=== PATIENT | male | born 1970 | race African-American/Black ===

== ENCOUNTER 2016-12-18 06:34 | Day surgery (SDC) | payer OTHER ==
[~2016-12-18 06:34] MED LIST: Buffered Lidocaine 1% SYRIN* 5 ML/SYR SYRINGE INTRADERM ONE
[2016-12-18] MEDS ORDERED: Bupivacaine 0.25% SDV* 30 ML ONE (07:11)
[2016-12-18] MEDS ORDERED: Midazolam* 1 MG/ML 2 ML VIAL (2 MG) ONE (07:32)
[2016-12-18] MEDS ORDERED: fentaNYL* 50 MCG/ML 2 ML VIAL (100 MCG VIAL) ONE (07:32)
[2016-12-18] MEDS ORDERED: Propofol* 10 MG/ML 20 ML BTL IV PUSH ONE (07:51)
[2016-12-18] MEDS ORDERED: Ketorolac INJ* 30 MG/ML 1 ML VIAL ONE (07:51)
[2016-12-18] MEDS ORDERED: Lidocaine 2% PF * 5 ML VIAL ONE (07:51)
[2016-12-18] MEDS ORDERED: HYDROcodone/ACETAMIN 5-325 MG* 1 TAB PO PRN (08:17)
[2016-12-18] MEDS ORDERED: PROCHLORPERAZINE INJ 5 MG/ML 2 ML VIAL IV PRN (08:17)
[2016-12-18] MEDS ORDERED: Acetaminophen TAB* 325 MG PO PRN (08:17)
[2016-12-18] MEDS ORDERED: Ondansetron INJ* 2 MG/ML VIAL IV PRN (08:17)
[2016-12-18 08:43] VITALS: BP 128/77
--- NOTE | 2016-12-18 12:40 | OP ---
DATE OF OPERATION: 12/18/16 - [facility] DATE OF : 70 SURGEON: Isidro Jaquez MD BAR WAITER/WAITRESS: THIERRY Dugan ANESTHESIOLOGIST: Dr. Leal. ANESTHESIA: Local MAC. PRE-OP DIAGNOSIS: Left wrist de Quervain's tenosynovitis. POST-OP DIAGNOSIS: Left wrist de Quervain's tenosynovitis. OPERATIVE PROCEDURE: Left de Quervain's release. INDICATIONS: Ric is a 46-year-old male whom I had injected him before. He had excellent relief after the injection and then few months later the pain came back. He came back to the operative suite, talked about another injection. He wanted to have surgical release performed. We therefore talked about risks and benefits. ESTIMATED BLOOD LOSS: 5 mL. COMPLICATIONS: None. FINDINGS: Very thickened first dorsal compartment tendon sheath. There was an accessory compartment. DESCRIPTION OF PROCEDURE: Ric was seen in the preoperative holding area. The correct site, side, and procedure were identified. We came back to the operating room where he got some anesthesia and then I infiltrated the operative area with 0.25% Marcaine. The arm was then prepped and draped in the usual fashion and time- out was performed. We began by exsanguinating the arm with the Esmarch and inflating the tourniquet to 250 mmHg. A transverse incision was then made over the first dorsal compartment tendon sheath about a cm too proximal to the radial styloid. Dissection was carried down bluntly and full thickness flaps were raised right off of the tendon sheath taking care to preserve the dorsal sensory branches of the radial nerves. With the tendon sheath fully exposed, I placed Ragnell retractors and then, under direct visualization, released the first dorsal compartment tendon sheath in line with the tendons on the dorsal aspect. There was septum in an accessory compartment noted. This was incised as well. There was some definite fraying of the tendon. There was some tenosynovitis, which was excised. I carried the release proximally and distally until there was absolutely no compression on the tendons. Once I was satisfied with the release, I went ahead and irrigated out the wound. I checked to make sure the tendons were inside the sheath. The skin was then closed with 4-0 nylon suture. The wound was then dressed with Xeroform, 4x4's, sterile Webril, and an Grzegorz wrap. He was taken to the recovery room in stable condition. [id number]/[facility] #: [id number] MAYA
== END 2016-12-18 09:03 | disposition home or self-care (01) ==
LOC: OREAST 06:34
PROVIDERS: ATTEND Orthopaedic Surgery Hand Surgery
DX: M65.4 Radial styloid tenosynovitis [de Quervain] (principal); F17.200 Nicotine dependence, unspecified, uncomplicated
CPT/HCPCS: J1885; J2250; J2704; J3010

== ENCOUNTER 2017-08-28 18:09 | Emergency (ER) | payer OTHER ==
[2017-08-28 18:43] VITALS: BP 130/84
--- NOTE | 2017-08-28 19:28 | UC ---
FLU HPI - HPI Summary HPI Summary: Patient presents with complaints of two-three day onset generalized fatigue, and malaise with runny nose, cough and chest congestion. He states he has been runny a fever. He has has no ill contact, or recent travel. - History of Current Complaint Hx Obtained From: Patient Onset/Duration: Gradual Onset, Lasting Days Severity Currently: Mild Severity Initially: Moderate Pain Intensity: 0 Associated Signs & Symptoms: Positive: Fever, Myalgia, Cough, Nasal Congestion - Risk Factors Influenza Risk Factors: Negative <Esme Alaniz - Last Filed: 08/28/17 19:31> <Lauren Hurd - Last Filed: 08/28/17 19:36> - History of Current Complaint Chief Complaint: UCRespiratory Stated Complaint: FLU SYMPTOMS Time Seen by Provider: 08/28/17 19:13 - Allergy/Home Medications Allergies/Adverse Reactions: Allergies Allergy/AdvReac Type Severity Reaction Status Date / Time No Known Allergies Allergy Verified 12/18/16 06:45 Home Medications: Home Medications Homeopathic Products [Zicam Cold Remedy] 08/28/17 [History] Tiyuppoxvtsdx-Hxwnuxamhrf-Eb [Theraflu Cold & Cough 10-20-20 mg] 08/28/17 [ History] PMH/Surg Hx/FS Hx/Imm Hx Previously Healthy: Yes Other History Of: Negative For: HIV, Hepatitis B, Hepatitis C - Surgical History Surgical History: Yes Surgery Procedure, Year, and Place: S/P [place] app[place] [facility] [place] - Family History Known Family History: Positive: Hypertension Negative: Cardiac Disease, Diabetes, Renal Disease - Social History Occupation: Employed Full-time Lives: With Family Alcohol Use: Rare Alcohol Amount: 1 x month, 1 beer Substance Use Type: Marijuana Substance Use Comment - Amount & Last Used: 2-4 x a week, marijuana Smoking Status (MU): Light Every Day Tobacco Smoker Type: Cigarettes Amount Used/How Often: 1 PACK/WK - Immunization History Most Recent Influenza Vaccination: 2009 Most Recent Tetanus Shot: unknown Most Recent Pneumonia Vaccination: never <Esme Alaniz - Last Filed: 08/28/17 19:31> Review of Systems Constitutional: Fever, Chills, Fatigue Skin: Negative Eyes: Negative ENT: Negative, Nasal Discharge Respiratory: Cough Cardiovascular: Negative Gastrointestinal: Negative Genitourinary: Negative Motor: Negative Neurovascular: Negative Musculoskeletal: Negative Neurological: Negative Psychological: Negative Is Patient Immunocompromised?: No All Other Systems Reviewed And Are Negative: Yes <Esme Alaniz - Last Filed: 08/28/17 19:31> Physical Exam Triage Information Reviewed: Yes Appearance: Well-Appearing Vital Signs: Initial Vital Signs Temp 99.6 F 08/28/17 18:36 Pulse 79 08/28/17 18:36 Resp 16 08/28/17 18:36 BP 130/84 08/28/17 18:36 Pulse Ox 98 08/28/17 18:36 Vital Signs Reviewed: Yes Eye Exam: Normal ENT: Positive: Pharyngeal erythema, Nasal congestion, Nasal drainage, Uvula midline Neck exam: Normal Neck: Positive: 1 Respiratory Exam: Normal Cardiovascular Exam: Normal Skin Exam: Normal <Esme Alaniz - Last Filed: 08/28/17 19:31> Vital Signs: Initial Vital Signs Temp 99.6 F 08/28/17 18:36 Pulse 79 08/28/17 18:36 Resp 16 08/28/17 18:36 BP 130/84 08/28/17 18:36 Pulse Ox 98 08/28/17 18:36 <Lauren Hurd - Last Filed: 08/28/17 19:36> Flu Course/Dx - Course Course Of Treatment: Patient presents with generalized fatigue, malaise, fever and cough symtpoms consistent with influenza. He was treated with tamiflu. Told to take tyelenol or advil for fever, chills, and body aches, increase fluids, rest and monitor for worsening symtpoms. Should his symtpoms get worse he was told to go to ther ER or be seen by his PCP. He verbalized understanding of and was in agreement with the discharge plan. - Differential Dx/Diagnosis Differential Diagnosis/HQI/PQRI: Influenza Provider Diagnoses: influenza <Esme Alaniz - Last Filed: 08/28/17 19:31> Discharge <Esme Alaniz - Last Filed: 08/28/17 19:31> <Lauren Hurd - Last Filed: 08/28/17 19:36> - Discharge Plan Condition: Stable Disposition: HOME Prescriptions: Guaifenesin-Codeine [Codeine/Guaifenesin 100-10 mg/5Ml] 5 ml PO Q6H PRN #180 ml MDD 4 PRN Reason: Cough Oseltamivir CAP* [Tamiflu CAP*] 75 mg PO BID #10 cap Patient Education Materials: Influenza (DC) Forms: *Work Release Referrals: No Primary Care Phys,NOPCP [Primary Care Provider] - Attestation Statement User Type: Provider - I was available for consult. This patient was seen by the [facility]. The patient was not presented to, seen by, or examined by me. -Mann <Lauren Hurd - Last Filed: 08/28/17 19:36>
== END 2017-08-28 19:35 | disposition home or self-care (01) ==
LOC: UCEAST 18:09
DX: J11.1 Influenza due to unidentified influenza virus with other respiratory manifestations (principal); F12.90 Cannabis use, unspecified, uncomplicated; F17.210 Nicotine dependence, cigarettes, uncomplicated
CPT/HCPCS: 99212; G0463

== ENCOUNTER 2017-11-07 17:46 | Emergency (ER) | payer OTHER ==
[2017-11-07] MEDS ORDERED: NS 0.9% 1000 ML* 1,000 ML IV ONE (20:05)
[2017-11-07] MEDS ORDERED: Metoclopramide IV* 5 MG/ML 2 ML VIAL IV SLOW PU ONE (20:06)
[2017-11-07] MEDS ORDERED: Morphine INJ* 4 MG/ML 1 ML SYRINGE (NEW SYRINGE VERSION) IV ONE (20:06)
[2017-11-07 20:34] LABS: ABS Basophils 0.1 10^3/ul (0-0.2); ABS Eosinophils 0.1 10^3/ul (0-0.6); ABS Lymphocytes 2.1 10^3/ul (1.0-4.8); ABS Monocytes 1.2 10^3/ul (0-0.8); ABS Neutrophils 9.6 10^3/ul (1.5-7.7); ABS Nucleated RBC 0 10^3/ul; Hematocrit 41 % (42-52); Lymphocyte % 15.9 % (25-47); Mean Corpuscular HGB Conc 34 g/dl (31-36); Mean Corpuscular Hemoglobin 30 pg (27-31); Mean Corpuscular Volume 86 fL (80-94); Mean Platelet Volume 8.9 um3 (7.4-10.4); Nucleated Red Blood Cells % 0; Platelet Count 184 10^3/ul (150-450); Red Blood Count 4.73 10^6/ul (4.0-5.4); Red Cell Distribution Width 13 % (10.5-15); White Blood Count 13.1 10^3/ul (3.5-10.8)
[2017-11-07] MEDS ORDERED: Iohexol 300* (CONTRAST) 10 ML SDV IV ONE (21:09)
[2017-11-07 21:50] LABS: Urine Appearance Clear; Urine Blood Negative (Negative); Urine Color Straw; Urine Ketones 1+ (Negative); Urine Protein Negative (Negative); Urine Specific Gravity 1.026 (1.010-1.030); Urine Urobilinogen Negative (Negative)
--- NOTE | 2017-11-07 21:50 | RAD ---
INDICATION: Lower abdominal pain. Possible constipation. Post appendectomy. COMPARISON: No relevant prior exams available on the [facility] PACS for comparison. TECHNIQUE: Multidetector CT images were obtained from the lung bases to the ischial tuberosities with 124 mL Omnipaque 300 IV and oral contrast. Multiplanar reformation. REPORT: Unremarkable visualized inferior thorax. The liver, gallbladder, pancreas, and spleen are unremarkable. Negative for CT abnormality of the upper GI or small bowel. Post appendectomy. Short segment circumferential mural thickening of the proximal sigmoid colon with perienteric inflammatory change. Mild colonic diverticulosis. Trace free pelvic fluid. Negative for free air. Negative for hernias. Normal adrenal glands. Unremarkable kidneys with symmetric nephrograms and pyelograms. Unremarkable nondilated ureters and partially distended urinary bladder. Symmetric seminal vesicles. Negative for lymphadenopathy. Normal diameter abdominal aorta and iliac arteries. Physiologic distention of the IVC. Negative for suspicious osseous lesions. IMPRESSION: 1. Short segment circumferential mural thickening of the proximal sigmoid colon with perienteric inflammatory change. The differential includes acute diverticulitis as well as a neoplastic colonic lesion with secondary inflammatory change. Correlate with clinical assessment. Assessment of the colonic mucosa with optical colonoscopy warranted after therapy for potential acute diverticulitis to exclude a colon carcinoma. 2. Negative for lymphadenopathy. 3. Negative for focal liver lesions.
[2017-11-07] MEDS ORDERED: metroNIDAZOLE TAB* 250 MG PO ONE (22:06)
[2017-11-07] MEDS ORDERED: Levofloxacin TAB* 500 MG PO ONE (22:06)
[2017-11-07 22:35] VITALS: BP 126/74
--- NOTE | 2017-11-08 01:13 | ED ---
Barbara Guerrero Nilda, scribed for Liset Pedersen MD on 11/07/17 at 1952 . Abdominal Pain/Female - HPI Summary HPI Summary: This patient is a 47 year old M presenting to [facility] accompanied by family with a chief complaint of intermittent non-radiating diffuse severe abd pain since waking up this morning. The patient rates the pain 9/10 in severity. Symptoms aggravated by palpation and alleviated by nothing. Patient reports diarrhea today that he had to force out. Pt states he does not take medications. - History of Current Complaint Chief Complaint: EDAbdPain Stated Complaint: ABD PAIN Hx Obtained From: Patient Onset/Duration: Sudden Onset, Lasting Hours, Still Present Timing: Intermittent Episode Lasting Severity Currently: Severe Pain Intensity: 9 Pain Scale Used: 0-10 Numeric Location: Diffuse Radiates: No Aggravating Factor(s): Other: - palpation Alleviating Factor(s): Nothing Associated Signs and Symptoms: Positive: Other: - diarrhea, constipation Allergies/Adverse Reactions: Allergies Allergy/AdvReac Type Severity Reaction Status Date / Time No Known Allergies Allergy Verified 11/07/17 17:51 PMH/Surg Hx/FS Hx/Imm Hx Endocrine/Hematology History: Denies: Hx Diabetes, Hx Thyroid Disease Cardiovascular History: Denies: Hx Congestive Heart Failure, Hx Deep Vein Thrombosis, Hx Hypertension , Hx Myocardial Infarction, Hx Pacemaker/ICD Respiratory History: Denies: Hx Asthma, Hx Chronic Obstructive Pulmonary Disease (COPD), Hx Lung Cancer, Hx Pneumonia, Hx Pulmonary Embolism GI History: Denies: Hx Gall Bladder Disease, Hx Gastrointestinal Bleed, Hx Ulcer, Hx Urosepsis History: Reports: Hx Kidney Stones - Suspected. Sensory History: Reports: Hx Contacts or Glasses - wears glasses Denies: Hx Cataracts, Hx Hearing Aid Opthamlomology History: Reports: Hx Contacts or Glasses - wears glasses Denies: Hx Cataracts Neurological History: Denies: Hx Dementia, Hx Migraine, Hx Seizures, Hx Transient Ischemic Attacks (TIA) Psychiatric History: Denies: Hx Anxiety, Hx Depression, Hx Schizophrenia, Hx Bipolar Disorder - Surgical History Surgery Procedure, Year, and Place: S/P Lap appy @ [facility] [place] 2013 Hx Anesthesia Reactions: No Infectious Disease History: No Infectious Disease History: Denies: Hx Hepatitis, Hx Human Immunodeficiency Virus (HIV), Traveled Outside the [place] in Last 30 Days - Family History Known Family History: Positive: Hypertension Negative: Cardiac Disease, Diabetes, Renal Disease - Social History Alcohol Use: Rare Alcohol Amount: 1 x month, 1 beer Substance Use Type: Reports: Marijuana Substance Use Comment - Amount & Last Used: 2-4 x a week, marijuana Smoking Status (MU): Light Every Day Tobacco Smoker Type: Cigarettes Amount Used/How Often: 1 PACK/WK Review of Systems Negative: Shortness Of Breath Positive: Abdominal Pain, Diarrhea, Other - constipation All Other Systems Reviewed And Are Negative: Yes Physical Exam - Summary Physical Exam Summary: VITAL SIGNS: Reviewed. GENERAL: Patient is a well-developed and nourished male who is lying comfortable in the stretcher. Patient is not in any acute respiratory distress. HEAD AND FACE: No signs of trauma. No ecchymosis, hematomas or skull depressions. No sinus tenderness. EYES: PERRLA, EOMI x 2, No injected conjunctiva, no nystagmus. EARS: Hearing grossly intact. Ear canals and tympanic membranes are within normal limits. MOUTH: Oropharynx within normal limits. NECK: Supple, trachea is midline, no adenopathy, no JVD, no carotid bruit, no c- spine tenderness, neck with full ROM. CHEST: Symmetric, no tenderness at palpation LUNGS: Clear to auscultation bilaterally. No wheezing or crackles. CVS: Regular rate and rhythm, S1 and S2 present, no murmurs or gallops appreciated. ABDOMEN: Soft, diffuse tenderness more over LLQ. No signs of distention. No rebound no guarding, and no masses palpated. Bowel sounds are normal. EXTREMITIES: FROM in all major joints, no edema, no cyanosis or clubbing. NEURO: Alert and oriented x 3. No acute neurological deficits. Speech is normal and follows commands. SKIN: Dry and warm Triage Information Reviewed: Yes Vital Signs On Initial Exam: Initial Vitals Temp Pulse Resp BP Pulse Ox 99.5 F 78 16 134/82 99 11/07/17 17:47 11/07/17 17:47 11/07/17 17:47 11/07/17 17:47 11/07/17 17:47 Vital Signs Reviewed: Yes Diagnostics - Vital Signs Vital Signs Temp Pulse Resp BP Pulse Ox 11/07/17 19:45 100.1 F 80 16 122/72 99 11/07/17 17:47 99.5 F 78 16 134/82 99 - Laboratory Result Diagrams: 11/07/17 20:16 11/07/17 20:16 Lab Statement: Any lab studies that have been ordered have been reviewed, and results considered in the medical decision making process. - CT Abd/Pel CT Interpretation Completed By: Radiologist - CT Abd/Pel, per radiologist, reveals 1. Short segment circumferential mural thickening of the proximal sigmoid colon with perienteric inflammatory change. The differential includes acute diverticulitis as well as a neoplastic colonic lesion with secondary inflammatory change. Correlate with clinical assessment. Assessment of the colonic mucosa with optical colonoscopy warranted after therapy for potential acute diverticulitis to exclude a colon carcinoma. 2. Negative for lymphadenopathy. 3. Negative for focal liver lesions. Dr. Pedersen has reviewed this radiology report. Re-Evaluation - Re-Evaluation First Eval Re-Evaluation Time: 22:15 Comment: Reviewed labs and imaging results with pt. Reviewed D/C plan. Pt agreeable with plan. Abdominal Pain Fem Course/Dx - Course Course Of Treatment: 47 y/o coming to ED for abd pain. Exam benavidez pt has LLQ tenderness. CT showed sigmoid diverticulitis with possible malignancy. Pt was D/ C home with abx and he was told to follow up outpatient GI. - Diagnoses Provider Diagnoses: Sigmoid diverticulitis Discharge - Sign-Out/Discharge Documenting (check all that apply): Discharge - home - Discharge Plan Condition: Stable Disposition: HOME Prescriptions: Levofloxacin TAB* [Levaquin TAB*] 500 mg PO DAILY #7 tab metroNIDAZOLE [Flagyl 500 MG TAB] 500 mg PO TID #20 tab oxyCODONE/Acetamin 5/325 MG* [Percocet 5/325 TAB*] 1 tab PO Q6H PRN #14 tab MDD 4 PRN Reason: Pain Patient Education Materials: Diverticulitis (ED) Referrals: Madhu Garcia MD [Medical Doctor] - As Soon As Possible Additional Instructions: Follow up with [facility] for colonoscopy. RETURN TO THE EMERGENCY DEPARTMENT FOR CHANGING OR WORSENING SYMPTOMS. The documentation as recorded by the Barbara pinedo Nilda accurately reflects the service I personally performed and the decisions made by Nuvia loo Abdul, MD.
== END 2017-11-07 22:37 | disposition home or self-care (01) ==
LOC: ED 17:46
DX: K57.92 Diverticulitis of intestine, part unspecified, without perforation or abscess without bleeding (principal); R19.7 Diarrhea, unspecified; K59.00 Constipation, unspecified; F17.210 Nicotine dependence, cigarettes, uncomplicated
CPT/HCPCS: 36415; 74177; 80053; 81003; 82150; 83690; 85025; 86140; 87040; 87086; 96361; 96374; 96375; 99283; A9270-GY; J2270; J2765; Q9967

== ENCOUNTER 2018-01-18 10:25 | Emergency (ER) | payer OTHER ==
[2018-01-18 11:20] LABS: ABS Basophils 0 10^3/ul (0-0.2); ABS Eosinophils 0.3 10^3/ul (0-0.6); ABS Lymphocytes 2.2 10^3/ul (1.0-4.8); ABS Monocytes 0.4 10^3/ul (0-0.8); ABS Neutrophils 1.6 10^3/ul (1.5-7.7); ABS Nucleated RBC 0 10^3/ul; Eosinophil % 5.7 % (0-6); Hematocrit 41 % (42-52); Lymphocyte % 49.1 % (25-47); Mean Corpuscular HGB Conc 34 g/dl (31-36); Mean Corpuscular Hemoglobin 30 pg (27-31); Mean Corpuscular Volume 87 fL (80-94); Mean Platelet Volume 9.1 um3 (7.4-10.4); Nucleated Red Blood Cells % 0.2; Platelet Count 179 10^3/ul (150-450); Red Blood Count 4.74 10^6/ul (4.00-5.40); Red Cell Distribution Width 13 % (10.5-15); White Blood Count 4.5 10^3/ul (3.5-10.8)
[2018-01-18 11:31] LABS: EGFR Non-African American 92.8 (>60)
--- NOTE | 2018-01-18 12:00 | RAD ---
HISTORY: Chest pain COMPARISONS: None VIEWS: 4: Frontal dual-energy and lateral views of the chest. FINDINGS: CARDIOMEDIASTINAL SILHOUETTE: The cardiomediastinal silhouette is normal. ALBINO: The albino are normal. PLEURA: The costophrenic angles are sharp. No pleural abnormalities are noted. LUNG PARENCHYMA: The lungs are clear. ABDOMEN: The upper abdomen is clear. There is no subphrenic gas. BONES AND SOFT TISSUES: No bone or soft tissue abnormalities are noted. OTHER: None. IMPRESSION: NO ACTIVE CARDIOPULMONARY DISEASE.
--- NOTE | 2018-01-18 12:39 | ED ---
Complex/Multi-Sys Presentation - HPI Summary HPI Summary: Patient is a 47-year-old male presenting to the ED with chief complaint of left anterior chest wall pain with associated tingling to the arm. He states he lifts approximately 25 pounds intermittently for his job. Symptoms are aggravated with movement and alleviated somewhat with rest. He has not taken anything [id number] for relief. Has not tried any heat to the area. He has never had symptoms like this before. Denies any known cardiac history. Denies any family cardiac history. He takes no medications daily and is otherwise healthy. Symptoms began approximately 2 weeks ago and have been intermittent. Denies worsening pain at specific times a day. Describes the pain as an achy and intermittent. Denies any weakness to the left arm or limitations with range of motion. Denies any shortness of breath, diaphoresis, fever, sweats, chills, abdominal pain, nausea, vomiting. Excess caffeine use. Denies any cocaine use. White smoker daily, and marijuana use. - History Of Current Complaint Chief Complaint: EDChestPainROMI Time Seen by Provider: 01/18/18 10:33 Hx Obtained From: Patient Onset/Duration: Gradual Onset Timing: Intermittent, Lasting:, Weeks - 2 Severity Currently: Mild Severity Initially: Mild Location: Negative Character: Dull - Allergies/Home Medications Allergies/Adverse Reactions: Allergies Allergy/AdvReac Type Severity Reaction Status Date / Time No Known Allergies Allergy Verified 11/07/17 17:51 Home Medications: Home Medications NK [No Home Medications Reported] 01/18/18 [History Confirmed 01/18/18] PMH/Surg Hx/FS Hx/Imm Hx Previously Healthy: Yes Endocrine/Hematology History: Denies: Hx Diabetes, Hx Thyroid Disease Cardiovascular History: Denies: Hx Congestive Heart Failure, Hx Deep Vein Thrombosis, Hx Hypertension , Hx Myocardial Infarction, Hx Pacemaker/ICD Respiratory History: Denies: Hx Asthma, Hx Chronic Obstructive Pulmonary Disease (COPD), Hx Lung Cancer, Hx Pneumonia, Hx Pulmonary Embolism GI History: Denies: Hx Gall Bladder Disease, Hx Gastrointestinal Bleed, Hx Ulcer, Hx Urosepsis History: Reports: Hx Kidney Stones - Suspected. Sensory History: Reports: Hx Contacts or Glasses - wears glasses Denies: Hx Cataracts, Hx Hearing Aid Opthamlomology History: Reports: Hx Contacts or Glasses - wears glasses Denies: Hx Cataracts Neurological History: Denies: Hx Dementia, Hx Migraine, Hx Seizures, Hx Transient Ischemic Attacks (TIA) Psychiatric History: Denies: Hx Anxiety, Hx Depression, Hx Schizophrenia, Hx Bipolar Disorder - Surgical History Surgery Procedure, Year, and Place: S/P Bebeto [place] @ [facility] [place] Hx Anesthesia Reactions: No - Immunization History Hx Pertussis Vaccination: No Immunizations Up to Date: Unable to Obtain/Confirm Infectious Disease History: Denies: Hx Hepatitis, Hx Human Immunodeficiency Virus (HIV), Traveled Outside the [place] in Last 30 Days - Family History Known Family History: Positive: Hypertension Negative: Cardiac Disease, Diabetes, Renal Disease - Social History Occupation: Employed Full-time Lives: With Family Alcohol Use: None Alcohol Amount: 1 x month, 1 beer Hx Substance Use: Yes Substance Use Type: Reports: Marijuana Substance Use Comment - Amount & Last Used: marijuana daily Hx Tobacco Use: Yes Smoking Status (MU): Light Every Day Tobacco Smoker Type: Cigarettes Amount Used/How Often: 1 PACK/WK Review of Systems Constitutional: Negative Negative: Fever, Chills, Fatigue, Skin Diaphoresis Negative: Photophobia, Blurred Vision Negative: Dental Pain, Sore Throat Positive: Chest Pain. Negative: Palpitations Negative: Shortness Of Breath, Cough Gastrointestinal: Negative Negative: Abdominal Pain, Vomiting, Diarrhea Positive: no symptoms reported, see HPI Positive: Arthralgia - left arm and shoulder Skin: Negative Positive: Paresthesia. Negative: Headache, Weakness, Numbness, Syncope All Other Systems Reviewed And Are Negative: Yes Physical Exam Triage Information Reviewed: Yes Vital Signs On Initial Exam: Initial Vitals Pulse Resp BP Pulse Ox 62 22 148/93 98 01/18/18 10:31 01/18/18 10:31 01/18/18 10:31 01/18/18 10:31 Vital Signs Reviewed: Yes Appearance: Positive: Well-Appearing, Well-Nourished Skin: Positive: Warm, Skin Color Reflects Adequate Perfusion Head/Face: Positive: Normal Head/Face Inspection Eyes: Positive: EOMI, BON, Conjunctiva Clear Neck: Positive: Supple, Nontender, No Lymphadenopathy Respiratory/Lung Sounds: Positive: Clear to Auscultation, Breath Sounds Present Cardiovascular: Positive: Normal, RRR, Pulses are Symmetrical in both Upper and Lower Extremities Neurological: Positive: Sensory/Motor Intact, Alert, Oriented to Person Place, Time, Speech Normal Psychiatric: Positive: Normal, Affect/Mood Appropriate AVPU Assessment: Alert Diagnostics - Vital Signs Vital Signs Temp Pulse Resp BP Pulse Ox 01/18/18 12:00 55 13 97 01/18/18 11:37 56 12 140/91 97 01/18/18 11:07 59 20 147/105 100 01/18/18 11:00 59 14 98 01/18/18 10:51 60 15 96 01/18/18 10:37 97.5 F 61 15 148/93 98 01/18/18 10:31 62 22 148/93 98 - Laboratory Lab Results: Lab Results 01/18/18 01/18/18 01/18/18 Range/Units 11:01 11:01 11:01 WBC 4.5 (3.5-10.8) 10^3/ul RBC 4.74 (4.00-5.40) 10^6/ul Hgb 14.0 (14.0-18.0) g/dl Hct 41 L (42-52) % MCV 87 (80-94) fL MCH 30 (27-31) pg MCHC 34 (31-36) g/dl RDW 13 (10.5-15) % Plt Count 179 (150-450) 10^3/ul MPV 9.1 (7.4-10.4) um3 Neut % (Auto) 35.8 L (38-83) % Lymph % (Auto) 49.1 H (25-47) % [place] % (Auto) 8.3 H (0-7) % Eos % (Auto) 5.7 (0-6) % Baso % (Auto) 1.1 (0-2) % Absolute Neuts (auto) 1.6 (1.5-7.7) 10^3/ul Absolute Lymphs (auto) 2.2 (1.0-4.8) 10^3/ul Absolute Monos (auto) 0.4 (0-0.8) 10^3/ul Absolute Eos (auto) 0.3 (0-0.6) 10^3/ul Absolute Basos (auto) 0 (0-0.2) 10^3/ul Absolute Nucleated RBC 0 10^3/ul Nucleated RBC % 0.2 Sodium 139 (135-145) mmol/L Potassium 3.9 (3.5-5.0) mmol/L Chloride 107 (101-111) mmol/L Carbon Dioxide 25 (22-32) mmol/L Anion Gap 7 (2-11) mmol/L BUN 13 (6-24) mg/dL Creatinine 0.88 (0.67-1.17) mg/dL Est GFR ( Amer) 112.3 (>60) Est GFR (Non-Af Amer) 92.8 (>60) BUN/Creatinine Ratio 14.8 (8-20) Glucose 97 (70-100) mg/dL Lactic Acid 0.9 (0.5-2.0) mmol/L Calcium 9.3 (8.6-10.3) mg/dL Magnesium 1.9 (1.9-2.7) mg/dL Total Bilirubin 0.60 (0.2-1.0) mg/dL AST 22 (13-39) U/L ALT 27 (7-52) U/L Alkaline Phosphatase 59 (34-104) U/L Troponin I 0.00 (<0.04) ng/mL Total Protein 6.6 (6.4-8.9) g/dL Albumin 3.9 (3.2-5.2) g/dL Globulin 2.7 (2-4) g/dL Albumin/Globulin Ratio 1.4 (1-3) Result Diagrams: 01/18/18 11:01 01/18/18 11:01 Lab Statement: Any lab studies that have been ordered have been reviewed, and results considered in the medical decision making process. Complex Multi-Symp Course/Dx Course Of Treatment: During the course of treatment, the patient is evaluated for chest wall pain which radiates to the shoulder and associated with numbness and tingling to the left arm. This has been intermittent over the last 2 weeks. Denies any currently. Denies any history of chest pain or cardiac issues. He is otherwise healthy and takes no medications. EKG shows sinus bradycardia with a rate of 59. Troponin 0.00. Chest x-ray shows no acute cardiopulmonary disease. Other labs are unremarkable. Patient is asymptomatic. He appears well, alert and oriented 3 and in no acute distress. I discussed the results with the patient and patient's . While patient's pain is not reproducible for me at this time on physical exam, he states the area was reproducible a few days ago while obtaining massage. For this reason I believe this to be musculoskeletal/nerve possibly associated with an overuse injury. I have advised ibuprofen and moist heat to the area. However, he is given strict return precautions for any worsening or changing symptoms. He understands this and is okay for discharge at this time. - Diagnoses Differential Diagnoses/HQI/PQRI: Other - nerve radiculopathy/pain, overuse injury, msk pain Provider Diagnoses: Paresthesia, Chest wall pain Discharge - Sign-Out/Discharge Documenting (check all that apply): Discharge/Admit/Transfer - Discharge Plan Condition: Stable Disposition: HOME Patient Education Materials: Paresthesia (ED) Referrals: Clara Pillai [Primary Care Provider] - Additional Instructions: I have given you information on paresthesia This may be due to overuse or a pinched nerve if you develop any worsening symptoms, please return to the ED Ibuprofen 600mg three times daily and moist heat to the area Do not exceed ibuprofen x 5 days in a row Professional massage may help if symptoms persist, follow up with your PCP regarding further management - Billing Disposition and Condition Condition: STABLE Disposition: Home
[2018-01-18 12:52] VITALS: BP 133/89
== END 2018-01-18 12:49 | disposition home or self-care (01) ==
LOC: ED 10:25
DX: R07.89 Other chest pain (principal); R20.2 Paresthesia of skin; R00.1 Bradycardia, unspecified; F17.210 Nicotine dependence, cigarettes, uncomplicated
CPT/HCPCS: 36415; 71046; 80053; 83605; 83735; 84484; 85025; 93005; 99283